=== PATIENT | male | born 1940 | race Caucasian/White ===

== ENCOUNTER 2016-04-19 01:07 | Inpatient (IN) | payer OTHER, MEDICARE ==
[~2016-04-19] VITALS: Ht 182.9 cm; Wt 85.7 kg
[2016-04-19] MEDS ORDERED: CHLORTHALIDONE25 M1 PO ×2 (10:19→13:20)
[2016-04-19] MEDS ORDERED: ASPIRIN EC81 M1 PO (10:21)
[2016-04-19] MEDS ORDERED: COLACE100 M1 PO (13:31)
[2016-04-19] MEDS ORDERED: COUMADIN5 M2 PO (13:31)
[2016-04-19] MEDS ORDERED: MIRALAX17 G1 PO (13:31)
[2016-04-19] MEDS ORDERED: DILAUDID2 M1 PO (13:31)
[2016-04-19] MEDS ORDERED: MS CONTIN30 M1 PO (13:31)
--- NOTE | 2016-04-19 13:33 | Patient Discharge Instructions ---
Discharge Instructions General Discharge Information You were seen/treated for: Hip pain You had these procedures: Total hip replacement Watch for these problems: See pre printed sheet Other wound care: See Preprinted sheet Special Instructions: Coumadin to be dosed according to INR. INR twice weekly. Goal 2-3. Diet Recommended Diet: Heart Healthy Activity Activity Self Limited: Yes Activity Limited to: Weight bear as tolerated Acute Coronary Syndrome Inclusion Criteria At DC or during hospital stay patient has or had the following: ACS DIAGNOSIS No Discharge Core Measures Meds if any: Prescribed or Continued at Discharge Meds if any: NOT Prescribed or Continued at Discharge Congestive Heart Failure Inclusion Criteria At DC or during hospital stay patient has or had the following: CHF DIAGNOSIS No Discharge Core Measures Meds if any: Prescribed or Continued at Discharge Meds if any: NOT Prescribed or Continued at Discharge Cerebrovascular accident Inclusion Criteria At DC or during hospital stay patient has or had the following: CVA/TIA Diagnosis No Discharge Core Measures Meds if any: Prescribed or Continued at Discharge Meds if any: NOT Prescribed or Continued at Discharge Venous thromboembolism Inclusion Criteria VTE Diagnosis No VTE Type NONE VTE Confirmed by (Test) NONE Discharge Core Measures - Per Current guidelines, there needs to be overlap - treatment for the first 5 days of Warfarin therapy. - If discharged on Warfarin prior to 5 days of - overlap therapy, the patient will need to be - assessed for post discharge needs including - *Post discharge parental anticoagulation - *Warfarin and/or parental anticoagulation education - *Follow up date to check INR post discharge At least 5 days overlap therapy as Inpatient No Meds if any: Prescribed or Continued at Discharge Note: Overlap Therapy is Warfarin and Anticoagulant Meds if any: NOT Prescribed or Continued at Discharge
--- NOTE | 2016-04-19 13:34 | Admission Core Measures ---
Admission Meds I reviewed the following Meds: Current Medications Sig/Martha Start time Last Medication Dose Stop Time Status Admin Acetaminophen 975 MG ONCE 04/19 NR (Tylenol) 04/19 2358 Cefazolin Sodium 2,000 MG ONCE 04/19 NR (Kefzol-Ancef Inj) 04/19 2358 Oxycodone HCl 10 MG ONCE 04/19 NR (Roxicodone) 04/19 2358 Acute Coronary Syndrome Inclusion Criteria ACS Diagnosis No Inpatient Core Measures LDL Reminder: If No, please order W/I first 24hr of stay Congestive Heart Failure Inclusion Criteria CHF Diagnosis No Cerebrovascular accident Inclusion Criteria CVA/TIA Diagnosis No Inpatient Core Measures Bedside Swallow Eval Reminder: If BSE failed, place ST order Antithrombotic Reminder: Order Antithrombotic Medication by end of day 2 Antithrombotic Reminder: Document Reason Antithrombotic Not ordered by end of day 2 AFIB/Flutter Reminder: If Present, add to problem list AFIB/Flutter Reminder: Order Anticoag Medication for pts with AFIB/Flutter Atherosclerosis Reminder: If Present, add to problem list LDL Reminder: If No, please order W/I first 24hr of stay PT Order Reminder: If No, please order Venous thromboembolism Inpatient Core Measures VTE Risk Factors: Age > 40, Surgery VTE Prophylaxis Ordered Inpt Mech & Pharm No Mech VTE prophylaxis d/t No contraindications No VTE Pharm Prophylaxis d/t No contraindications Inclusion Criteria - Per Current guidelines, there needs to be overlap - treatment for the first 5 days of Warfarin therapy. - Parenteral Anticoagulation (IV or SC) needs to be - given along with Warfarin therapy. VTE Diagnosis No VTE Type NONE VTE Confirmed by (Test) NONE Problem List As ranked by this Provider includes Assessment & Plan 1. Status post total hip replacement, right HOME MEDS Home Med List Aspirin (Ecotrin*) 81 MG TABLET. 1 TAB PO EOD HEART HEALTH (Reported) Chlorthalidone 25 MG TABLET 1 TAB PO EOD BLOOD PRESSURE (Reported) Chlorthalidone 25 MG TABLET 0.5 TAB PO EOD BLOOD PRESSURE (Reported) Docusate Sodium (Colace) 100 MG CAPSULE 1 CAP PO BID constipation Hydromorphone HCl (Dilaudid) 2 MG TABLET 1-2 TAB PO Q4P PRN pain Morphine Sulfate (Ms Contin) 30 MG TABLET.ER 1 TAB PO BID pain Polyethylene Glycol 3350 (Miralax) 17 GRAM POWD.PACK 1 PAC PO DAILY constipation Warfarin Sodium (Coumadin) 5 MG TABLET 1 TAB PO DAILY BLOOD THINNER
--- NOTE | 2016-04-19 13:37 | Surg Short-stay <48hrs Dis Sum ---
Visit Information Visit Dates Admission Date: 04/19/16 Discharge Date: 04/20/16 Surgical Short Stay DC Summary Admission Diagnosis: DJD, OA Final Diagnosis: Same, s/p R JOY Procedure(s): R JOY - see op report Summary/Significant Findings: Pt underwent a total hip replacement by Dr Albright. The patient tolerated the procedure well and was brought to the PACU in stable condition. The patient was able to void spontaneously, pain was well controlled on oral medication and was able to tolerate a diet without nausea. The patient worked with PT and was cleared for discharge home with services. Per Dr Albright, the patient was begun on coumadin on the day of surgery and the INR was monitored. Condition at Discharge: good Discharge Disposition: home health services Discharge instructions provided to patient/family: Yes Post discharge follow-up plan: Keep scheduled appt with Dr Albright
--- NOTE | 2016-04-19 15:02 | RADIOLOGY REPORT ---
EXAMINATION: XR HIP, RIGHT CLINICAL INFORMATION: Postop. Status post right total hip replacement. COMPARISON: None TECHNIQUE: Portable AP and crosstable lateral views of the right hip. FINDINGS: The right total hip arthroplasty is well seated in near-anatomic alignment. There is air in the soft tissues. IMPRESSION: Intact right total hip arthroplasty. Expected postoperative changes.
--- NOTE | 2016-04-19 15:40 | PN- Orthopedic ---
Subjective Subjective: The patient was seen this afternoon postoperatively. He reports that his pain is under adequate control and has no other complaints at the current time. Additionally, he denies any chest pain or difficulty breathing. Objective Vital Signs and I&Os Vital signs: Blood pressure 133/74, pulse 90, temperature 97.3, O2 saturation 95 % on room air I's and O's: 2200 ML's in of lactated Ringer's/patient is due to void/EBL less than 100 Physical Exam: Gen.: Alert and obvious distress Skin: Warm and dry Cardiac: S1-S2 regular Pulmonary: Bilateral breath sounds equal with good exchange Extremities: Bilateral lower extremities are warm without calf tenderness or significant edema. Gross motor and sensory are intact. Right hip surgical dressing is clean, dry, and intact. Assessment/Plan Assessment/Plan Assessment: 75-year-old male status post right total hip arthroplasty. Postoperative the patient is pressing as expected and his pain is under adequate control Plan: Out of bed with physical therapy patient is weightbearing as tolerated Keep on current pain regiment GI and DVT prophylaxis Start aspirin 325 mg by mouth twice a day first dose tonight Monitor for postoperative void Strict I's and O's 2 doses of postoperative prophylactic antibiotics Resume home medications Core Measures/Miscellaneous Venous Thromboembolism VTE Risk Factors: Age > 40, Surgery VTE Contraindications: No Contraindications VTE Prophylaxis Ordered Inpt: Mech & Pharm VTE Diagnosis: No VTE Type: NONE VTE Confirmed by (Test): NONE Beta Kellie Is Beta Kellie a Home Med? No Antibiotics Is Patient on Antibiotics? Yes If Yes: prophylaxis
--- NOTE | 2016-04-19 16:38 | Operative Report ---
Operative/Inv Procedure Report Surgery Date: 04/19/16 Name of Procedure: Right total hip replacement Pre-Operative Diagnosis: Primary right hip DJD Post-Operative Diagnosis: Same Estimated Blood Loss: 250 Surgeon/Shuttler: KEELEY COUGHLIN,JAMAL Walker Anesthesia: block Operative/Procedure Note Note: Description of Procedure: The patient was taken to the operating room and positively identified. After induction of spinal anesthesia and administration of appropriate pre-operative antibiotics, the patient was positioned supine on the operating room table and all bony prominences were well padded. After performing a surgical timeout, the right lower extremity was prepped and draped in the usual sterile fashion. A direct anterior approach was made to the right hip. The incision was carried sharply through superficial soft tissues to the level of the fascia. Meticulous hemostasis was maintained with Bovie electocautery. The fascia over the tensor fascia minnie muscle was opened sharply and the interval between the TFL and the sartorius was entered bluntly taking care to stay lateral to the lateral femoral cutaneous nerve. Retractors were placed around the femoral neck and the pericapsular fat was identified. The ascending branches of the lateral femoral circumflex vessels were identified and carefully coagulated. The pericapsular fat and anterior capsule were then resected. A napkin ring osteotomy was performed and the femoral head was removed without difficulty. Attention was then turned to the acetabulum. After appropriate placement of retractors, the acetabulum was exposed. Soft tissue was cleaned from the acetabular margin and notch. Overhanging osteophytes were removed and the teardrop was exposed. The acetabulum was then sequentially reamed to accept a 62 mm Ruth Tritanium hemispherical solid back shell. This was impacted into place in the appropriate position and fitted with a 36 mm Trident X3 zero degree polyethylene insert. Attention was then turned to the femur. After performing the appropriate ligament releases, the proximal femur was exposed. It was then sequentially broached to accept a size 8 Winthrop accolade 2 stem. This was trialed for leg length and stability. The trial component was removed and the final component was impacted into place. The trunnion was carefully cleaned and fit with a 36 mm, +2.5 Biolox delta ceramic femoral head. The hip was reduced and put through a full range of motion and found to be stable. The articular space was then irrigated with sterile saline. The periarticular soft tissues were infilitrated with Marcaine. The fascial layer was closed with interrupted #1 vicryl suture and the skin was re-approximated with interrupted 2 -0 vicryl. The skin was closed with a running 3-0 V-Lock suture. Steri-strips and a sterile dressing were applied. The patient was awakened and taken to the recovery room in satisfactory condition.
[2016-04-19 16:40] VITALS: BP 142/74
--- NOTE | 2016-04-19 20:10 | PN- Orthopedic ---
Subjective Subjective: s/p right celeste called by nursing with vs check demonstrating hr of 120 @bedside susannah cp, palpitation, sob, no n+v he states this happens to him from time to time when he gets anxious and usually resolves wit xanax Objective Vital Signs and I&Os Vital Signs Date Time Temp Pulse Resp B/P Pulse O2 O2 Flow FiO2 Ox Delivery Rate 04/19 1640 97.5 92 20 142/74 95 Room Air Physical Exam: cv: rrr, tachycardic lungs: clear abd: +bs ext: hip drsg dry no calf tenderness to palp exg: sinus tachycardia no ischemia no arrythmia Assessment/Plan Assessment/Plan ortho stable tachycardia plan po xanax now recheck in a few hours Core Measures/Miscellaneous Venous Thromboembolism VTE Risk Factors: Age > 40, Surgery VTE Contraindications: No Contraindications VTE Prophylaxis Ordered Inpt: Mech & Pharm VTE Diagnosis: No VTE Type: NONE VTE Confirmed by (Test): NONE Beta Kellie Is Beta Kellie a Home Med? No Antibiotics Is Patient on Antibiotics? Yes If Yes: prophylaxis
[2016-04-19 22:02] VITALS: BP 154/87
--- NOTE | 2016-04-19 23:42 | NUR ---
NURSING NOTE; LATE ENTRY; PT ADMITTED TO FROM PACU VIA STRETCHER AT 1640. PT AMBULATED TO BED WITH A RW AND ASSIST OF PHYSICAL THERAPIST. PT ALERT AND ORIENTED X3. PT ON RA, LCTA, DENIES SOB, NO DISTRESS NOTED. PT DRESSING TO R HIP CDI. PT HAD +CMS. PT HAS NO COMPLAINTS AT THIS TIME. PT ORIENTED TO ROOM AND CALL MARTE. WILL CONTINUE TO MONITOR.
--- NOTE | 2016-04-19 23:44 | NUR ---
NURSING NOTE; LATE ENTRY; AT 1900 PT VITAL SIGNS WERE CHECKED AND PT PULSE WAS 120. ALTHOUGH PT WAS TACHY PT DISPLAYED NO SIGNS OF DISTRESS. THIS RN CALLED THE SURGICAL PA AND THE SURGICAL PA ORDERED A STAT EKG. STAT EKG WAS COMPLETED AND SURGICAL PA CAME TO PT BEDSIDE TO ASSESS PT. PT EXTREMELY ANXIOUS AND TOLD SURGICAL PA HE TAKES XANAX AT HOME TO HELP. XANAX ORDERED AND GIVEN. WILL CONTINUE TO MONITOR.
[2016-04-20 00:43] VITALS: BP 140/84
[2016-04-20 04:10] VITALS: BP 120/70
--- NOTE | 2016-04-20 07:54 | PN- Orthopedic ---
Subjective Subjective: No acute overnight events reported. Patient did however raise concern about his heart rate. He states that he noted it went up to the 120s and he was feeling anxious at the time. He has a history of anxiety and has had a heart rate elevation in the past. He responded to xanax and his heart rate returned to normal. He did request that we continue to assess his rate this am. He denies chest pain, shortness of breath and difficulty breathing. He denies dizziness. He denies nausea and vomitting. He has been voiding spontaneously. He feels that his pain has been well managed. Presently he acknowledges only minor incisional pain. He ambulated yesterday x1 with PT. Objective Vital Signs and I&Os Vital Signs Date Time Temp Pulse Resp B/P Pulse O2 O2 Flow FiO2 Ox Delivery Rate 04/20 0410 97.0 107 20 120/70 93 Room Air 04/20 0043 97.4 108 20 140/84 94 Room Air 04/19 2202 98.4 104 20 154/87 94 04/19 1640 97.5 92 20 142/74 95 Room Air Intake & Output 04/20 0800 04/20 0000 04/19 1600 04/19 0800 04/19 0000 04/18 1600 Intake Total 600 1300 Output Total 825 725 Balance -225 575 Intake, IV 600 600 Intake, Oral 700 Output, Urine 825 725 Patient 189 lb Weight Physical Exam: General: Alert and oriented x3, no acute distress Cardiac: s1s2, HR 100 Pulmonary: Bilateral lung sounds clear to auscultation Abdomen: Non-tender, non-distended Extremities: Moves all extremities, distal sensations intact. Motor 5/5 in plantar and dorsi flexion bilaterally. Skin warm and well perfused. DP palpable bilaterally. Bilateral calves soft and non-tender. Surgical site: Right hip. Dressing with dry blood-tinge. No evidence of active bleeding. Thigh compartment soft. Assessment/Plan Assessment/Plan This is a 75 year old male with a PMH of anxiety, cardiac arrhythmia, and fibromyalgia. He is POD 1 s/p R THR, anterior approach. Doing well. -D/C IV fluids this am -Monitor urine output -Continue to assess heart rate q shift -Continue current pain regimen -Continue diet as tolerated -Daily coumadin for DVT ppx -F/U am labs: CBC, BEP, INR, reassess INR daily -OOB today with PT -Dispo planning: Possible dc home today Core Measures/Miscellaneous Venous Thromboembolism VTE Risk Factors: Age > 40, Surgery VTE Contraindications: No Contraindications VTE Prophylaxis Ordered Inpt: Mech & Pharm VTE Diagnosis: No VTE Type: NONE VTE Confirmed by (Test): NONE Beta Kellie Is Beta Kellie a Home Med? No Antibiotics Is Patient on Antibiotics? Yes If Yes: prophylaxis
[2016-04-20 08:02] LABS: ABSOLUTE BASOPHIL COUNT 0 /CUMM (0.0-0.2); ABSOLUTE EOSINOPHIL COUNT 0 /CUMM (0.0-0.7); ABSOLUTE GRANULOCYTE CT 8.2 /CUMM (1.4-6.5); ABSOLUTE LYMPH COUNT 1.6 /CUMM (1.2-3.4); ABSOLUTE MONOCYTE COUNT 1.2 /CUMM (0.10-0.60); BASOPHIL % 0.3 % (0.0-2.0); EOSINOPHIL % 0.1 % (0-5); GRANULOCYTE % 74.1 % (42.2-75.2); HEMATOCRIT 41.7 % (42-52); MEAN CORPUSCULAR HGB 31.7 PG (27.0-31.0); MEAN CORPUSCULAR HGB CONC 34.3 G/DL (33.0-37.0); MEAN CORPUSCULAR VOLUME 92.5 FL (80.0-94.0); MEAN PLATELET VOLUME 8.8 FL (7.4-10.4); PLATELET COUNT 167 /CUMM (130-400); RBC DISTRIBUTION WIDTH 13.5 % (11.5-14.5); RED BLOOD CELL CT 4.51 /CUMM (4.70-6.10); WHITE BLOOD CELL COUNT 11.1 /CUMM (4.8-10.8)
[2016-04-20 08:53] VITALS: BP 142/86
[2016-04-20 09:45] LABS: PT 12.2 SEC (9.4-12.5)
[2016-04-20 14:44] VITALS: BP 122/70
[2016-04-20] MEDS ORDERED: ASPIRIN EC325 M2 PO (15:41)
[2016-04-20] MEDS ORDERED: PRILOSEC OTC20 M1 PO (16:06)
== END 2016-04-20 16:53 | disposition home health service (06) | DRG 470 ==
LOC: ENRESERVTM → ENRESERVDT → EDSEX 01:07 → ENPENDDIS 01:07 → SDA 01:07 → 2NB 01:07 → SDA 07:00 → 2NB 16:37
PROVIDERS: Physician Assistant Surgical; ADMIT Orthopaedic Surgery
PROC: 0SR904A Replacement of Right Hip Joint with Ceramic on Polyethylene Synthetic Substitute, Uncemented, Open Approach (ICD-10-PCS; principal; 2016-04-19)
DX: M16.11 Unilateral primary osteoarthritis, right hip (principal); I10 Essential (primary) hypertension
CPT/HCPCS: 2NBSP; 36415; 73502-RT; 82436; 88304; 93005; 93010; 97110-GO; 97116-GO; 97161-GP; 97530-GO; 97535-GO; J0690; J0735; J1100; J2405; J7042